=== PATIENT | male | born 1960 | race Caucasian/White ===

== ENCOUNTER 2021-06-12 17:31 | Inpatient (IN) | payer OTHER ==
[2021-06-12 18:29] VITALS: BMI 24.0
[2021-06-12] MEDS ORDERED: MAG HYDROX/AL HYDROX/SIMETH 30 ML UNIT-DOSE CUP PO PRN (19:02)
[2021-06-12] MEDS ORDERED: IBUPROFEN 400 MG TABLET (FP) PO PRN (19:02)
[2021-06-12] MEDS ORDERED: MAGNESIUM CITRATE 300 ML BOTTLE PO PRN (19:02)
[2021-06-12] MEDS ORDERED: guaiFENesin 200 MG/10 ML 10 ML UNIT-DOSE CUPS PO PRN (19:02)
[2021-06-12] MEDS ORDERED: NICOTINE 10 MG CARTRIDGE (INHALER) IH PRN (19:02)
[2021-06-12] MEDS ORDERED: P-EPHED 60MG/TRIPROLIDI 2.5MG TABLET PO PRN (19:02)
[2021-06-12] MEDS ORDERED: MAGNESIUM HYDROX 2400MG/30ML ORAL SUSPENSION 30 ML CUP PO PRN (19:02)
[2021-06-12] MEDS ORDERED: LOPERAMIDE HCL 2 MG CAPSULE PO PRN (19:02)
[2021-06-12] MEDS ORDERED: ACETAMINOPHEN 325 MG TABLET (FP) PO PRN (19:02)
[2021-06-12] MEDS ORDERED: TUBERCULIN PPD 5 TU/0.1ML VIAL ID ONE (22:05)
[2021-06-12] MEDS: MELATONIN 5 MG TABLETS PO SCH (22:06)
[2021-06-12] MEDS: THIAMINE HCL 100 MG TABLET (FP) PO SCH (22:06)
[2021-06-12] MEDS: hydrOXYzine PAMOATE 25 MG CAPSULE (FP) PO SCH (22:06)
[2021-06-13] MEDS: hydrOXYzine PAMOATE 25 MG CAPSULE (FP) PO SCH ×5 (07:00→21:52)
[2021-06-13] MEDS: NICOTINE 7 MG/24 HOURS TOPICAL PATCH TD SCH (10:01)
[2021-06-13] MEDS: PRENATAL VITAMINS W/ FOLIC ACID TABLET (FP) PO SCH (10:01)
[2021-06-13 14:54] LABS: URINE APPEARANCE CLEAR; URINE BILIRUBIN 2+ (NEGATIVE); URINE COLOR DK YELLOW; URINE GLUCOSE (UA) NEGATIVE (NEGATIVE); URINE KETONE TRACE (NEGATIVE); URINE LEUK ESTERASE NEGATIVE (NEGATIVE); URINE NITRITE NEGATIVE (NEGATIVE); URINE PROTEIN NEGATIVE (NEGATIVE); URINE UROBILINOGEN 4.0 E.U/dl mg/dL (0.2-1.0)
[2021-06-13] MEDS: MELATONIN 5 MG TABLETS PO SCH (21:52)
[2021-06-13] MEDS: THIAMINE HCL 100 MG TABLET (FP) PO SCH (21:52)
[2021-06-14] MEDS: hydrOXYzine PAMOATE 25 MG CAPSULE (FP) PO SCH ×3 (06:43→13:17)
[2021-06-14] MEDS: PRENATAL VITAMINS W/ FOLIC ACID TABLET (FP) PO SCH (09:40)
[2021-06-14] MEDS: NICOTINE 7 MG/24 HOURS TOPICAL PATCH TD SCH (09:41)
[2021-06-14 11:07] LABS: HEMATOCRIT 27.5 % (35.4-49); HEMOGLOBIN 9.3 GM/dL (11.7-16.9); MCH 32.5 pg (25.7-33.7); MCHC 33.9 g/dl (32.0-35.9); MEAN CELL VOLUME 95.9 fl (80-96); MEAN PLT VOLUME 7.6 fl (7.5-11.1); PLATELET COUNT 80 10^3/uL (134-434); RBC 2.87 M/mm3 (4.00-5.60); RDW 14.9 % (11.9-15.9); WHITE BLOOD COUNT 4.6 K/mm3 (4.0-10.0)
[2021-06-14 12:57] LABS: ALBUMIN 2.2 g/dl (3.4-5.0); BILIRUBIN,TOTAL 2.7 mg/dL (0.2-1); BLOOD UREA NITROGEN 18.2 mg/dL (7-18); CALCIUM 8.5 mg/dL (8.5-10.1); TOT PROT 8.2 g/dl (6.4-8.2)
[2021-06-14] MEDS ORDERED: hydrOXYzine PAMOATE 25 MG CAPSULE (FP) PO PRN (15:38)
[2021-06-14] MEDS: THIAMINE HCL 100 MG TABLET (FP) PO SCH (21:09)
[2021-06-14] MEDS: MELATONIN 5 MG TABLETS PO SCH (21:09)
[2021-06-15] MEDS: NICOTINE 7 MG/24 HOURS TOPICAL PATCH TD SCH (10:48)
[2021-06-15] MEDS: PRENATAL VITAMINS W/ FOLIC ACID TABLET (FP) PO SCH (10:48)
[2021-06-15 18:41] LABS: SYPHILIS W/ RPR CONF NON-REACTIVE (NONREACTIVE)
[2021-06-15 19:43] VITALS: TEMP 98.3
[2021-06-15 19:45] VITALS: BP 136/62; PULSE 84
[2021-06-15] MEDS: MELATONIN 5 MG TABLETS PO SCH (21:20)
[2021-06-15] MEDS: THIAMINE HCL 100 MG TABLET (FP) PO SCH (21:21)
[2021-06-16] MEDS ORDERED: HEPARIN NA (PORCINE) 5,000 UNITS/ML 1ML VIAL SQ SCH (02:00)
[2021-06-16] MEDS ORDERED: INSULIN SLIDING SCALE (NOVOLOG) 1 VIAL SQ SCH (07:00)
[2021-06-16] MEDS ORDERED: MUPIROCIN 2% TOPICAL OINTMENT FOR DECOLONIZATION NS SCH ×2 (10:00)
[2021-06-16] MEDS ORDERED: CHLORHEXIDINE GLUCONATE 4% CLEANSER FOR DECOLONIZATION TP SCH ×2 (22:00)
== END 2021-06-16 00:19 | disposition short-term general hospital (02) | DRG 895 ==
LOC: YASAS 17:31 → Y5N 19:54
PROVIDERS: ADMIT Allergy & Immunology; ATTEND Allergy & Immunology
PROC: HZ42ZZZ Group Counseling for Substance Abuse Treatment, Cognitive-Behavioral (ICD-10-PCS; principal; 2021-06-12)
DX: F10.20 Alcohol dependence, uncomplicated (principal); F17.210 Nicotine dependence, cigarettes, uncomplicated; J45.909 Unspecified asthma, uncomplicated; G62.9 Polyneuropathy, unspecified; K74.60 Unspecified cirrhosis of liver; D51.9 Vitamin B12 deficiency anemia, unspecified; R46.4 Slowness and poor responsiveness
CPT/HCPCS: 36415; 80053; 81003; 82962; 85027; 86780; 86803; 87811; C9803; U0003; U0005

== ENCOUNTER 2021-06-15 20:05 | Inpatient (IN) | payer OTHER ==
[2021-06-15] MEDS ORDERED: LORazepam 2 MG/ML SDV VIAL ONE ×3 (20:11→22:05)
[2021-06-15] MEDS ORDERED: LORazepam 2 MG/ML SDV VIAL IVPUSH ONE ×4 (20:15→22:02)
[2021-06-15 21:05] LABS: EOS % 2.3 % (0-4.5); HEMATOCRIT 23.3 % (35.4-49); HEMOGLOBIN 7.9 GM/dL (11.7-16.9); LYMPH % 16.3 % (8-40); MCH 31.7 pg (25.7-33.7); MEAN CELL VOLUME 93.2 fl (80-96); MEAN PLT VOLUME 7.1 fl (7.5-11.1); MONO % 8.5 % (3.8-10.2); NEUT % 71.9 % (42.8-82.8); PLATELET COUNT 62 10^3/uL (134-434); RDW 15.1 % (11.9-15.9); VENOUS BASE EXCESS -3.4 mmol/L (-2-2); VENOUS O2 SATURATION 43.5 % (70-80); VENOUS PCO2 35.6 mmHg (38-52); VENOUS PH 7.387 (7.310-7.410); WHITE BLOOD COUNT 4.1 K/mm3 (4.0-10.0)
[2021-06-15 21:12] LABS: INR 1.62 (0.83-1.09); PROTHROMBIN TIME (PATIENT) 18.2 SEC (9.7-13.0)
[2021-06-15 21:15] LABS: ACTIVATED PTT 33.4 SECONDS (25.2-36.5)
[2021-06-15] MEDS ORDERED: levETIRAcetam 500 MG/5 ML INJECTION VIAL IVPB ONE ×2 (21:15→21:20)
[2021-06-15 21:33] LABS: CHLORIDE 110 mmol/L (98-107); SODIUM 140 mmol/L (136-145)
[2021-06-15 21:35] LABS: CALCIUM 7.9 mg/dL (8.5-10.1)
[2021-06-15 21:36] LABS: ANION GAP 10 MMOL/L (8-16); CO2 19 mmol/L (21-32); GLUCOSE,RANDOM 120 mg/dL (74-106); MAGNESIUM 1.8 mg/dL (1.8-2.4)
[2021-06-15 21:39] LABS: CHOLESTEROL 145 mg/dL (50-200); SGOT/AST 79 U/L (15-37); SGPT/ALT 43 U/L (13-61)
[2021-06-15 21:40] LABS: BILIRUBIN,TOTAL 2.4 mg/dL (0.2-1); LDL CHOLESTEROL (ONLY SJRH) 109 mg/dL (5-100); TOT PROT 7.8 g/dl (6.4-8.2); TRIGLYCERIDES 55 mg/dL (0-150)
[2021-06-15 21:41] LABS: ALK PHOS 173 U/L (45-117); HDL CHOLESTEROL 22 mg/dL (40-60)
[2021-06-15] MEDS ORDERED: LACTULOSE 20 GM/30 ML UDC (FOR RECTAL USE ONLY) PR ONE (22:11)
[2021-06-15] MEDS ORDERED: diazePAM CARPU-JECT 10 MG/2 ML DISP.SYRIN IVPUSH ONE (23:19)
[2021-06-15] MEDS ORDERED: diazePAM CARPU-JECT 10 MG/2 ML DISP.SYRIN ONE (23:30)
[2021-06-16] MEDS ORDERED: PANTOPRAZOLE SODIUM 40 MG VIAL IVPUSH ONE (00:12)
[2021-06-16] MEDS ORDERED: PROPOFOL 1,000,000 MCG/100 ML VIAL ONE (00:31)
[2021-06-16] MEDS ORDERED: RIFAXIMIN 550 MG TABLET PO ONE (00:32)
[2021-06-16] MEDS ORDERED: LACTULOSE 20 GM/30 ML UDC (FOR ORAL USE ONLY) PO ONE (00:34)
[2021-06-16] MEDS ORDERED: ETOMIDATE 40 MG/20 ML VIAL IVPUSH ONE (00:36)
[2021-06-16] MEDS ORDERED: ROCURONIUM BROMIDE 50 MG/5 ML VIAL IV ONE (00:36)
[2021-06-16] MEDS: PROPOFOL 1,000,000 MCG/100 ML VIAL IVPB SCH (00:56)
[2021-06-16] MEDS ORDERED: PANTOPRAZOLE SODIUM 40 MG VIAL ONE (01:14)
[2021-06-16 01:22] LABS: ARTERIAL BLOOD GAS PO2 148.5 mmHg (80-100); ARTERIAL BLOOD GAS pH 7.323 (7.350-7.450)
[2021-06-16 01:23] LABS: ALLENS TEST POSITIVE
[2021-06-16 01:24] LABS: VENT RATE 12
[2021-06-16] MEDS: OCTREOTIDE ACETATE 200 MCG, OCTREOTIDE ACETATE 1,000 MCG in DEXTROSE 5%-WATER - 496 ML IVPB SCH (01:33)
[2021-06-16] MEDS: PANTOPRAZOLE SODIUM 80 MG in SODIUM CHLORIDE 100 ML IVPB SCH ×3 (01:33→21:00)
[2021-06-16 01:43] LABS: EPI CELLS 15 /uL (0-25.1); HYALINE CASTS 1 /uL (0-3.1); PH,URINE 5.5 (5.0-8.0); URINE APPEARANCE CLEAR; URINE BACTERIA 80 /uL (0-1359); URINE BILIRUBIN NEGATIVE (NEGATIVE); URINE COLOR DK YELLOW; URINE GLUCOSE (UA) NEGATIVE (NEGATIVE); URINE KETONE NEGATIVE (NEGATIVE); URINE LEUK ESTERASE NEGATIVE (NEGATIVE); URINE NITRITE NEGATIVE (NEGATIVE); URINE PROTEIN NEGATIVE (NEGATIVE); URINE RBC 19 /uL (0-23.9); URINE WBC 8 /uL (0-25.8)
[2021-06-16 01:46] LABS: METHADONE, UR NEGATIVE (NEGATIVE); OPIATES, URI NEGATIVE (NEGATIVE); PHENCYCLIDINE,URINE NEGATIVE (NEGATIVE); URINE BARBITURATES NEGATIVE (NEGATIVE)
[2021-06-16 01:47] LABS: COCAINE, UR NEGATIVE (NEGATIVE); URINE AMPHETAMINES NEGATIVE (NEGATIVE)
[2021-06-16 01:52] LABS: URINE BENZODIAZEPINES POSITIVE (NEGATIVE)
[2021-06-16 03:40] LABS: BASO % 0.5 % (0-2.0); EOS % 0.2 % (0-4.5); HEMATOCRIT 24.6 % (35.4-49); HEMOGLOBIN 8.3 GM/dL (11.7-16.9); LYMPH % 4.4 % (8-40); MCH 31.9 pg (25.7-33.7); MCHC 33.9 g/dl (32.0-35.9); MEAN CELL VOLUME 94.2 fl (80-96); MEAN PLT VOLUME 6.9 fl (7.5-11.1); MONO % 9.8 % (3.8-10.2); NEUT % 85.1 % (42.8-82.8); PLATELET COUNT 71 10^3/uL (134-434); RBC 2.62 M/mm3 (4.00-5.60); RDW 15.3 % (11.9-15.9); WHITE BLOOD COUNT 8.9 K/mm3 (4.0-10.0)
[2021-06-16] MEDS: THIAMINE HCL 200 MG/2 ML VIAL IVPB SCH ×3 (04:03→18:38)
[2021-06-16] MEDS ORDERED: CEFTRIAXONE 1 GM in DEXTROSE 5%-WATER - 50 ML IVPB ONE (04:30)
[2021-06-16] MEDS ORDERED: HEPARIN NA (PORCINE) 5,000 UNITS/ML 1ML VIAL SQ SCH (06:00)
[2021-06-16] MEDS ORDERED: cefTRIAXone SODIUM 1 GM VIAL ONE (06:59)
[2021-06-16] MEDS ORDERED: DEXTROSE 5%-WATER - 50 ML IVPB ONE (07:00)
[2021-06-16 07:02] LABS: BASO % 0.4 % (0-2.0); EOS % 0.3 % (0-4.5); HEMATOCRIT 22.3 % (35.4-49); HEMOGLOBIN 7.6 GM/dL (11.7-16.9); MCH 32.4 pg (25.7-33.7); MEAN CELL VOLUME 95.3 fl (80-96); MEAN PLT VOLUME 7.4 fl (7.5-11.1); MONO % 10.8 % (3.8-10.2); NEUT % 81.5 % (42.8-82.8); PLATELET COUNT 61 10^3/uL (134-434); RBC 2.34 M/mm3 (4.00-5.60); RDW 14.9 % (11.9-15.9)
[2021-06-16 07:18] LABS: ALBUMIN 1.8 g/dl (3.4-5.0); CALCIUM 7.8 mg/dL (8.5-10.1)
[2021-06-16 07:19] LABS: MAGNESIUM 1.6 mg/dL (1.8-2.4)
[2021-06-16] MEDS: INSULIN SLIDING SCALE (NOVOLOG) 1 VIAL SQ SCH ×4 (07:19→23:46)
[2021-06-16 07:21] LABS: CREATININE 1.2 mg/dL (0.55-1.3); PHOSPHOROUS 3.6 mg/dL (2.5-4.9)
[2021-06-16 07:23] LABS: TOT PROT 7.3 g/dl (6.4-8.2)
[2021-06-16] MEDS ORDERED: FENTANYL NS IVPB 500 MCG/100 ML BAG IVPB ONE (08:17)
[2021-06-16] MEDS: LACTATED RINGERS SOLUTION 1,000 ML/1,000 ML INFUS.BAG IV SCH (08:30)
[2021-06-16] MEDS: FENTANYL IVPB 500 MCG/100 ML BAG IVPB SCH (08:32)
[2021-06-16] MEDS ORDERED: MAGNESIUM 1GM/D5W - 1 GM/100 ML IVPB IVPB ONE (10:29)
[2021-06-16 10:36] LABS: HEMATOCRIT 23.6 % (35.4-49); HEMOGLOBIN 7.9 GM/dL (11.7-16.9); MCH 31.6 pg (25.7-33.7); MCHC 33.2 g/dl (32.0-35.9); MEAN PLT VOLUME 6.8 fl (7.5-11.1); RBC 2.49 M/mm3 (4.00-5.60); RDW 15.5 % (11.9-15.9); WHITE BLOOD COUNT 5.2 K/mm3 (4.0-10.0)
[2021-06-16 11:00] LABS: PLATELET COUNT 33 10^3/uL (134-434)
[2021-06-16] MEDS ORDERED: LACTATED RINGERS SOLUTION 1000 ML INFUS.BAG IV ONE ×2 (11:00→11:24)
[2021-06-16] MEDS: MUPIROCIN 2% TOPICAL OINTMENT FOR DECOLONIZATION NS SCH ×2 (11:15→23:46)
[2021-06-16] MEDS ORDERED: PT OWN MED DRAWER 7, Y5N ONE ×2 (11:19→18:36)
[2021-06-16] MEDS: VASOPRESSIN 40 UNITS/100 ML BAG IV SCH (11:40)
[2021-06-16 13:37] LABS: HEMATOCRIT 20.1 % (35.4-49); MCH 32.6 pg (25.7-33.7); MCHC 33.8 g/dl (32.0-35.9); MEAN CELL VOLUME 96.2 fl (80-96); MEAN PLT VOLUME 7.6 fl (7.5-11.1); RBC 2.09 M/mm3 (4.00-5.60); RDW 15.2 % (11.9-15.9); WHITE BLOOD COUNT 5.1 K/mm3 (4.0-10.0)
[2021-06-16 13:40] LABS: HEMOGLOBIN 6.8 GM/dL (11.7-16.9)
[2021-06-16 13:41] LABS: PLATELET COUNT 18 10^3/uL (134-434)
[2021-06-16 14:13] LABS: ANISOCYTOSIS 0; HELMET CELLS 0; HOWELL-JOLLY BODIES 0; MACROCYTOSIS 0; OVALOCYTE 0; PLATELET ESTIMATE DECREASED; ROULEAU 0; SICKELED CELLS 0; TARGET CELLS 0; TEAR DROP CELLS 0; TOXIC GRANULATION 0
[2021-06-16 14:19] LABS: BLOOD UREA NITROGEN 26.2 mg/dL (7-18); CALCIUM 7.6 mg/dL (8.5-10.1)
[2021-06-16 14:23] LABS: CREATININE 1.3 mg/dL (0.55-1.3)
[2021-06-16 14:37] LABS: LACTIC ACID 4.8 mmol/L (0.4-2.0)
[2021-06-16] MEDS ORDERED: PHYTONADIONE 10 MG/1 ML AMP IVPB ONE (16:44)
[2021-06-16 20:50] LABS: LACTIC ACID 3.1 mmol/L (0.4-2.0)
[2021-06-16 23:31] LABS: HEMOGLOBIN 9.7 GM/dL (11.7-16.9); MCH 31.7 pg (25.7-33.7); MCHC 34.6 g/dl (32.0-35.9); MEAN CELL VOLUME 91.6 fl (80-96); MEAN PLT VOLUME 8.7 fl (7.5-11.1); PLATELET COUNT 27 10^3/uL (134-434); RBC 3.06 M/mm3 (4.00-5.60); RDW 15.9 % (11.9-15.9); WHITE BLOOD COUNT 10.5 K/mm3 (4.0-10.0)
[2021-06-16] MEDS: CHLORHEXIDINE GLUCONATE 4% CLEANSER FOR DECOLONIZATION TP SCH (23:46)
[2021-06-17] MEDS: THIAMINE HCL 200 MG/2 ML VIAL IVPB SCH ×3 (02:16→17:48)
[2021-06-17] MEDS: OCTREOTIDE ACETATE 200 MCG, OCTREOTIDE ACETATE 1,000 MCG in DEXTROSE 5%-WATER - 496 ML IVPB SCH (02:21)
[2021-06-17] MEDS: PROPOFOL 1,000,000 MCG/100 ML VIAL IVPB SCH (02:21)
[2021-06-17 06:33] LABS: ARTERIAL BLD GAS O2 SATURATION 98.8 % (95-98); ARTERIAL BLOOD GAS PO2 128.9 mmHg (80-100); ARTERIAL BLOOD GAS pH 7.489 (7.350-7.450)
[2021-06-17 06:45] LABS: ALLENS TEST POSITIVE
[2021-06-17 06:46] LABS: VENT MODE A/C; VENT RATE 12
[2021-06-17 07:47] LABS: BASO % 0.8 % (0-2.0); EOS % 5.4 % (0-4.5); HEMATOCRIT 25.9 % (35.4-49); HEMOGLOBIN 9.1 GM/dL (11.7-16.9); LYMPH % 4.3 % (8-40); MCH 32.2 pg (25.7-33.7); MCHC 35.1 g/dl (32.0-35.9); MEAN CELL VOLUME 91.9 fl (80-96); MEAN PLT VOLUME 9.1 fl (7.5-11.1); MONO % 7.7 % (3.8-10.2); NEUT % 81.8 % (42.8-82.8); RBC 2.82 M/mm3 (4.00-5.60); RDW 15.3 % (11.9-15.9); WHITE BLOOD COUNT 7.1 K/mm3 (4.0-10.0)
[2021-06-17] MEDS: INSULIN SLIDING SCALE (NOVOLOG) 1 VIAL SQ SCH ×4 (08:00→22:46)
[2021-06-17 08:12] LABS: BLOOD UREA NITROGEN 24.9 mg/dL (7-18); CALCIUM 7.8 mg/dL (8.5-10.1)
[2021-06-17 08:13] LABS: MAGNESIUM 1.5 mg/dL (1.8-2.4)
[2021-06-17 08:15] LABS: CREATININE 1.2 mg/dL (0.55-1.3)
[2021-06-17 08:17] LABS: BILIRUBIN,TOTAL 3.5 mg/dL (0.2-1); TOT PROT 7.2 g/dl (6.4-8.2)
[2021-06-17 08:31] LABS: PLATELET COUNT 21 10^3/uL (134-434)
[2021-06-17] MEDS ORDERED: LACTULOSE 20 GM/30 ML UDC (FOR ORAL USE ONLY) PO PRN (08:33)
[2021-06-17] MEDS ORDERED: POTASSIUM CHLORIDE ORAL LIQUID 20 MEQ/15 ML PO ONE (08:37)
[2021-06-17] MEDS ORDERED: MAGNESIUM 1GM/D5W 100ML - 100 ML IVPB IVPB ONE (08:37)
[2021-06-17] MEDS: MUPIROCIN 2% TOPICAL OINTMENT FOR DECOLONIZATION NS SCH ×2 (09:30→21:43)
[2021-06-17] MEDS: RIFAXIMIN 550 MG TABLET PO SCH ×2 (09:31→21:42)
[2021-06-17] MEDS ORDERED: cefTRIAXone SODIUM 1 GM VIAL ONE (12:46)
[2021-06-17] MEDS ORDERED: DEXTROSE 5%-WATER - 50 ML IVPB ONE (12:46)
[2021-06-17] MEDS: CEFTRIAXONE 1 GM in DEXTROSE 5%-WATER - 50 ML IVPB SCH (13:15)
[2021-06-17] MEDS: LACTATED RINGERS SOLUTION 1,000 ML/1,000 ML INFUS.BAG IV SCH (13:18)
[2021-06-17] MEDS: FENTANYL IVPB 500 MCG/100 ML BAG IVPB SCH (15:56)
[2021-06-17] MEDS: PANTOPRAZOLE SODIUM 80 MG in SODIUM CHLORIDE 100 ML IVPB SCH ×2 (15:57→16:18)
[2021-06-17] MEDS ORDERED: VASOPRESSIN 20 UNITS/ML VIAL IV ONE (18:33)
[2021-06-17 18:55] LABS: INR 1.87 (0.83-1.09); PROTHROMBIN TIME (PATIENT) 21.1 SEC (9.7-13.0)
[2021-06-17 18:57] LABS: ACTIVATED PTT 33.2 SECONDS (25.2-36.5)
[2021-06-17] MEDS: VASOPRESSIN 40 UNITS/100 ML BAG IV SCH (19:15)
[2021-06-17] MEDS: CHLORHEXIDINE GLUCONATE 4% CLEANSER FOR DECOLONIZATION TP SCH (21:42)
[2021-06-18] MEDS: PROPOFOL 1,000,000 MCG/100 ML VIAL IVPB SCH (00:30)
[2021-06-18] MEDS: OCTREOTIDE ACETATE 200 MCG, OCTREOTIDE ACETATE 1,000 MCG in DEXTROSE 5%-WATER - 496 ML IVPB SCH (02:36)
[2021-06-18] MEDS: THIAMINE HCL 200 MG/2 ML VIAL IVPB SCH ×3 (02:37→18:31)
[2021-06-18] MEDS: PANTOPRAZOLE SODIUM 80 MG in SODIUM CHLORIDE 100 ML IVPB SCH ×3 (03:45→23:04)
[2021-06-18] MEDS: INSULIN SLIDING SCALE (NOVOLOG) 1 VIAL SQ SCH ×4 (06:19→23:04)
[2021-06-18 06:56] LABS: BASO % 0.6 % (0-2.0); EOS % 7.6 % (0-4.5); HEMATOCRIT 25.1 % (35.4-49); HEMOGLOBIN 8.8 GM/dL (11.7-16.9); LYMPH % 10.1 % (8-40); MCH 31.8 pg (25.7-33.7); MCHC 34.9 g/dl (32.0-35.9); MEAN PLT VOLUME 8.9 fl (7.5-11.1); MONO % 11.1 % (3.8-10.2); NEUT % 70.6 % (42.8-82.8); RBC 2.76 M/mm3 (4.00-5.60); RDW 15.4 % (11.9-15.9); WHITE BLOOD COUNT 6.5 K/mm3 (4.0-10.0)
[2021-06-18 07:14] LABS: PLATELET COUNT 18 10^3/uL (134-434)
[2021-06-18 07:17] LABS: ALBUMIN 1.6 g/dl (3.4-5.0); BLOOD UREA NITROGEN 21.2 mg/dL (7-18); CALCIUM 7.3 mg/dL (8.5-10.1); MAGNESIUM 1.7 mg/dL (1.8-2.4)
[2021-06-18 07:20] LABS: CREATININE 0.9 mg/dL (0.55-1.3); PHOSPHOROUS 2.3 mg/dL (2.5-4.9)
[2021-06-18 07:22] LABS: BILIRUBIN,TOTAL 2.9 mg/dL (0.2-1); TOT PROT 6.6 g/dl (6.4-8.2)
[2021-06-18] MEDS ORDERED: MAGNESIUM SULF 50% (8.12 MEQ/2 ML-1 GM VIAL) IVPB ONE (09:00)
[2021-06-18] MEDS ORDERED: NAPH,MB-DB/K PH,MBDB POWDER PACKET PO ONE (09:00)
[2021-06-18] MEDS ORDERED: PT OWN MED DRAWER 7, Y5N ONE ×3 (09:02→21:30)
[2021-06-18] MEDS ORDERED: cefTRIAXone SODIUM 1 GM VIAL ONE (09:03)
[2021-06-18] MEDS ORDERED: DEXTROSE 5%-WATER - 50 ML IVPB ONE (09:03)
[2021-06-18] MEDS: CEFTRIAXONE 1 GM in DEXTROSE 5%-WATER - 50 ML IVPB SCH (09:10)
[2021-06-18] MEDS: LACTATED RINGERS SOLUTION 1,000 ML/1,000 ML INFUS.BAG IV SCH ×2 (09:12→23:06)
[2021-06-18] MEDS: MUPIROCIN 2% TOPICAL OINTMENT FOR DECOLONIZATION NS SCH ×2 (09:12→23:04)
[2021-06-18] MEDS: RIFAXIMIN 550 MG TABLET PO SCH ×2 (09:13→23:04)
[2021-06-18] MEDS ORDERED: OCTREOTIDE ACETATE 200 MCG, OCTREOTIDE ACETATE 1,000 MCG in DEXTROSE 5%-WATER - 496 ML IVPB SCH (14:50)
[2021-06-18] MEDS: LACTULOSE 20 GM/30 ML UDC (FOR ORAL USE ONLY) GT SCH ×2 (15:00→23:04)
[2021-06-18] MEDS: VASOPRESSIN 40 UNITS/100 ML BAG IV SCH (15:05)
[2021-06-18] MEDS ORDERED: PHYTONADIONE 10 MG/1 ML AMP IVPB ONE (15:30)
[2021-06-18] MEDS: FENTANYL IVPB 500 MCG/100 ML BAG IVPB SCH (18:31)
[2021-06-18 19:26] LABS: BASO % 0.6 % (0-2.0); EOS % 6.1 % (0-4.5); HEMATOCRIT 25.4 % (35.4-49); HEMOGLOBIN 8.7 GM/dL (11.7-16.9); LYMPH % 8.7 % (8-40); MCH 31.2 pg (25.7-33.7); MCHC 34.2 g/dl (32.0-35.9); MEAN CELL VOLUME 91.1 fl (80-96); MEAN PLT VOLUME 8.1 fl (7.5-11.1); MONO % 10.5 % (3.8-10.2); NEUT % 74.1 % (42.8-82.8); RBC 2.79 M/mm3 (4.00-5.60); RDW 15.4 % (11.9-15.9); WHITE BLOOD COUNT 5.5 K/mm3 (4.0-10.0)
[2021-06-18 19:49] LABS: PLATELET COUNT 26 10^3/uL (134-434)
[2021-06-18] MEDS: CHLORHEXIDINE GLUCONATE 4% CLEANSER FOR DECOLONIZATION TP SCH (23:04)
[2021-06-19] MEDS: PROPOFOL 1,000,000 MCG/100 ML VIAL IVPB SCH ×2 (00:23→19:00)
[2021-06-19] MEDS: THIAMINE HCL 200 MG/2 ML VIAL IVPB SCH ×3 (01:32→18:52)
[2021-06-19] MEDS: LACTATED RINGERS SOLUTION 1,000 ML/1,000 ML INFUS.BAG IV SCH ×2 (05:43→10:57)
[2021-06-19] MEDS: LACTULOSE 20 GM/30 ML UDC (FOR ORAL USE ONLY) GT SCH ×3 (05:43→21:27)
[2021-06-19] MEDS: INSULIN SLIDING SCALE (NOVOLOG) 1 VIAL SQ SCH ×4 (06:03→21:28)
[2021-06-19 07:07] LABS: BASO % 0.8 % (0-2.0); EOS % 7.8 % (0-4.5); HEMATOCRIT 23.8 % (35.4-49); HEMOGLOBIN 8.4 GM/dL (11.7-16.9); LYMPH % 13.2 % (8-40); MCH 32.4 pg (25.7-33.7); MCHC 35.2 g/dl (32.0-35.9); MEAN CELL VOLUME 92.1 fl (80-96); MEAN PLT VOLUME 9.4 fl (7.5-11.1); MONO % 12.2 % (3.8-10.2); RBC 2.59 M/mm3 (4.00-5.60); RDW 14.9 % (11.9-15.9); WHITE BLOOD COUNT 5.4 K/mm3 (4.0-10.0)
[2021-06-19 07:16] LABS: PLATELET COUNT 30 10^3/uL (134-434)
[2021-06-19 07:25] LABS: BLOOD UREA NITROGEN 16.9 mg/dL (7-18); CALCIUM 7.4 mg/dL (8.5-10.1)
[2021-06-19 07:26] LABS: MAGNESIUM 1.8 mg/dL (1.8-2.4)
[2021-06-19 07:28] LABS: CREATININE 0.7 mg/dL (0.55-1.3); PHOSPHOROUS 1.9 mg/dL (2.5-4.9)
[2021-06-19 07:30] LABS: BILIRUBIN,TOTAL 2.4 mg/dL (0.2-1); TOT PROT 6.5 g/dl (6.4-8.2)
[2021-06-19] MEDS ORDERED: NAPH,MB-DB/K PH,MBDB POWDER PACKET PO ONE (09:00)
[2021-06-19] MEDS ORDERED: cefTRIAXone SODIUM 1 GM VIAL ONE (10:44)
[2021-06-19] MEDS ORDERED: DEXTROSE 5%-WATER - 50 ML IVPB ONE (10:45)
[2021-06-19] MEDS: PANTOPRAZOLE SODIUM 40 MG VIAL IVPUSH SCH ×2 (10:56→21:27)
[2021-06-19] MEDS: MUPIROCIN 2% TOPICAL OINTMENT FOR DECOLONIZATION NS SCH ×2 (10:56→21:28)
[2021-06-19] MEDS: CEFTRIAXONE 1 GM in DEXTROSE 5%-WATER - 50 ML IVPB SCH (10:56)
[2021-06-19] MEDS: FENTANYL IVPB 500 MCG/100 ML BAG IVPB SCH (10:57)
[2021-06-19] MEDS: RIFAXIMIN 550 MG TABLET PO SCH ×2 (10:58→21:28)
[2021-06-19] MEDS ORDERED: PT OWN MED DRAWER 7, Y5N ONE (13:07)
[2021-06-19 14:07] LABS: THYROID STIM IMMUNOGLOBULIN <0.10 IU/L (0.00-0.55)
[2021-06-19 16:17] LABS: BASO % 0.9 % (0-2.0); EOS % 4.5 % (0-4.5); HEMATOCRIT 24.5 % (35.4-49); HEMOGLOBIN 8.4 GM/dL (11.7-16.9); LYMPH % 7.5 % (8-40); MCH 31.2 pg (25.7-33.7); MCHC 34.4 g/dl (32.0-35.9); MEAN CELL VOLUME 90.7 fl (80-96); MEAN PLT VOLUME 8.4 fl (7.5-11.1); MONO % 12.6 % (3.8-10.2); NEUT % 74.5 % (42.8-82.8); WHITE BLOOD COUNT 5.8 K/mm3 (4.0-10.0)
[2021-06-19 16:32] LABS: PLATELET COUNT 28 10^3/uL (134-434)
[2021-06-19] MEDS: CHLORHEXIDINE GLUCONATE 4% CLEANSER FOR DECOLONIZATION TP SCH (21:28)
[2021-06-20] MEDS: PROPOFOL 1,000,000 MCG/100 ML VIAL IVPB SCH (01:51)
[2021-06-20] MEDS: THIAMINE HCL 200 MG/2 ML VIAL IVPB SCH ×3 (01:51→18:07)
[2021-06-20] MEDS: INSULIN SLIDING SCALE (NOVOLOG) 1 VIAL SQ SCH ×4 (06:39→21:14)
[2021-06-20] MEDS: LACTULOSE 20 GM/30 ML UDC (FOR ORAL USE ONLY) GT SCH ×3 (06:41→21:14)
[2021-06-20 07:38] LABS: BASO % 0.9 % (0-2.0); HEMATOCRIT 27.7 % (35.4-49); HEMOGLOBIN 9.5 GM/dL (11.7-16.9); INR 2.08 (0.83-1.09); LYMPH % 11.6 % (8-40); MCH 31.3 pg (25.7-33.7); MCHC 34.5 g/dl (32.0-35.9); MEAN CELL VOLUME 90.9 fl (80-96); MEAN PLT VOLUME 8.4 fl (7.5-11.1); MONO % 13.4 % (3.8-10.2); NEUT % 68.1 % (42.8-82.8); PROTHROMBIN TIME (PATIENT) 23.5 SEC (9.7-13.0); RBC 3.04 M/mm3 (4.00-5.60); WHITE BLOOD COUNT 6.3 K/mm3 (4.0-10.0)
[2021-06-20 08:04] LABS: PLATELET COUNT 32 10^3/uL (134-434)
[2021-06-20 08:06] LABS: CALCIUM 7.7 mg/dL (8.5-10.1)
[2021-06-20 08:07] LABS: ALBUMIN 1.7 g/dl (3.4-5.0); BLOOD UREA NITROGEN 11.5 mg/dL (7-18); MAGNESIUM 1.9 mg/dL (1.8-2.4)
[2021-06-20 08:08] LABS: CREATININE 0.8 mg/dL (0.55-1.3)
[2021-06-20 08:10] LABS: PHOSPHOROUS 1.9 mg/dL (2.5-4.9)
[2021-06-20 08:12] LABS: BILIRUBIN,TOTAL 2.1 mg/dL (0.2-1); TOT PROT 6.7 g/dl (6.4-8.2)
[2021-06-20] MEDS: PANTOPRAZOLE SODIUM 40 MG VIAL IVPUSH SCH ×2 (10:06→21:14)
[2021-06-20] MEDS: RIFAXIMIN 550 MG TABLET PO SCH ×2 (10:06→21:14)
[2021-06-20] MEDS: MUPIROCIN 2% TOPICAL OINTMENT FOR DECOLONIZATION NS SCH ×2 (10:06→21:13)
[2021-06-20] MEDS ORDERED: PT OWN MED DRAWER 7, Y5N ONE ×3 (11:05→12:10)
[2021-06-20] MEDS ORDERED: PHYTONADIONE 10 MG/1 ML AMP SQ ONE (11:51)
[2021-06-20] MEDS ORDERED: PHYTONADIONE 10 MG/1 ML AMP IVPB ONE (13:12)
[2021-06-20] MEDS: CHLORHEXIDINE GLUCONATE 4% CLEANSER FOR DECOLONIZATION TP SCH (21:13)
[2021-06-21] MEDS: PROPOFOL 1,000,000 MCG/100 ML VIAL IVPB SCH ×3 (01:14→21:10)
[2021-06-21] MEDS: THIAMINE HCL 200 MG/2 ML VIAL IVPB SCH ×3 (01:14→17:35)
[2021-06-21] MEDS: INSULIN SLIDING SCALE (NOVOLOG) 1 VIAL SQ SCH ×4 (06:11→21:10)
[2021-06-21] MEDS: LACTULOSE 20 GM/30 ML UDC (FOR ORAL USE ONLY) GT SCH ×3 (06:11→21:10)
[2021-06-21 07:38] LABS: BASO % 0.9 % (0-2.0); HEMATOCRIT 27.4 % (35.4-49); HEMOGLOBIN 9.3 GM/dL (11.7-16.9); LYMPH % 17.3 % (8-40); MCHC 33.9 g/dl (32.0-35.9); MEAN CELL VOLUME 91.5 fl (80-96); MEAN PLT VOLUME 8.1 fl (7.5-11.1); MONO % 12.6 % (3.8-10.2); NEUT % 63.2 % (42.8-82.8); PLATELET COUNT 37 10^3/uL (134-434); RDW 15.1 % (11.9-15.9); WHITE BLOOD COUNT 6.7 K/mm3 (4.0-10.0)
[2021-06-21 07:44] LABS: INR 2.17 (0.83-1.09); PROTHROMBIN TIME (PATIENT) 25.6 SEC (9.7-13.0)
[2021-06-21] MEDS ORDERED: PROPOFOL 1,000,000 MCG/100 ML VIAL IVPB SCH (07:45)
[2021-06-21 07:50] LABS: ALBUMIN 1.6 g/dl (3.4-5.0)
[2021-06-21 07:52] LABS: CALCIUM 7.8 mg/dL (8.5-10.1)
[2021-06-21 07:53] LABS: ALBUMIN 1.8 g/dl (3.4-5.0); BILIRUBIN,DIRECT 1.8 mg/dL (0.0-0.2); BLOOD UREA NITROGEN 12.2 mg/dL (7-18); MAGNESIUM 1.8 mg/dL (1.8-2.4)
[2021-06-21 07:55] LABS: BILIRUBIN,TOTAL 2.4 mg/dL (0.2-1); TOT PROT 6.5 g/dl (6.4-8.2)
[2021-06-21 07:56] LABS: CREATININE 0.7 mg/dL (0.55-1.3); PHOSPHOROUS 2.1 mg/dL (2.5-4.9)
[2021-06-21 07:58] LABS: BILIRUBIN,TOTAL 2.4 mg/dL (0.2-1); TOT PROT 6.6 g/dl (6.4-8.2)
[2021-06-21] MEDS ORDERED: LORazepam 2 MG/ML SDV VIAL IVPUSH ONE (08:00)
[2021-06-21] MEDS ORDERED: levETIRAcetam 500 MG/5 ML INJECTION VIAL IVPB ONE (08:00)
[2021-06-21] MEDS ORDERED: PT OWN MED DRAWER 7, Y5N ONE ×2 (09:03→17:22)
[2021-06-21] MEDS: RIFAXIMIN 550 MG TABLET PO SCH ×2 (09:47→21:10)
[2021-06-21] MEDS: PANTOPRAZOLE SODIUM 40 MG VIAL IVPUSH SCH ×2 (09:47→21:10)
[2021-06-21 15:03] VITALS: BMI 23.6
[2021-06-21] MEDS ORDERED: PHYTONADIONE 10 MG/1 ML AMP IVPB ONE (16:14)
[2021-06-21 18:28] LABS: BASO % 1.2 % (0-2.0); EOS % 6.1 % (0-4.5); HEMATOCRIT 30.9 % (35.4-49); HEMOGLOBIN 10.7 GM/dL (11.7-16.9); LYMPH % 14.6 % (8-40); MCH 31.6 pg (25.7-33.7); MCHC 34.5 g/dl (32.0-35.9); MEAN CELL VOLUME 91.4 fl (80-96); MEAN PLT VOLUME 8.2 fl (7.5-11.1); MONO % 13.8 % (3.8-10.2); NEUT % 64.3 % (42.8-82.8); PLATELET COUNT 69 10^3/uL (134-434); RBC 3.38 M/mm3 (4.00-5.60); RDW 15.3 % (11.9-15.9); WHITE BLOOD COUNT 7.5 K/mm3 (4.0-10.0)
[2021-06-21] MEDS: CHLORHEXIDINE GLUCONATE 4% CLEANSER FOR DECOLONIZATION TP SCH (21:10)
[2021-06-22] MEDS: THIAMINE HCL 200 MG/2 ML VIAL IVPB SCH ×3 (01:06→18:25)
[2021-06-22] MEDS: INSULIN SLIDING SCALE (NOVOLOG) 1 VIAL SQ SCH ×4 (06:12→22:55)
[2021-06-22] MEDS: LACTULOSE 20 GM/30 ML UDC (FOR ORAL USE ONLY) GT SCH ×3 (06:12→22:40)
[2021-06-22] MEDS: PROPOFOL 1,000,000 MCG/100 ML VIAL IVPB SCH (06:12)
[2021-06-22 07:45] LABS: EOS % 5.5 % (0-4.5); HEMATOCRIT 28.3 % (35.4-49); HEMOGLOBIN 9.9 GM/dL (11.7-16.9); LYMPH % 14.9 % (8-40); MEAN CELL VOLUME 91.5 fl (80-96); MEAN PLT VOLUME 8.6 fl (7.5-11.1); MONO % 12.6 % (3.8-10.2); PLATELET COUNT 68 10^3/uL (134-434); RBC 3.09 M/mm3 (4.00-5.60); WHITE BLOOD COUNT 7.1 K/mm3 (4.0-10.0)
[2021-06-22 08:05] LABS: ALBUMIN 1.8 g/dl (3.4-5.0); BLOOD UREA NITROGEN 15.3 mg/dL (7-18); CALCIUM 7.5 mg/dL (8.5-10.1)
[2021-06-22 08:06] LABS: MAGNESIUM 1.6 mg/dL (1.8-2.4)
[2021-06-22 08:08] LABS: CREATININE 0.8 mg/dL (0.55-1.3); PHOSPHOROUS 2.8 mg/dL (2.5-4.9)
[2021-06-22] MEDS ORDERED: MAGNESIUM 1GM/D5W - 1 GM/100 ML IVPB IVPB ONE (08:08)
[2021-06-22 08:10] LABS: BILIRUBIN,TOTAL 2.3 mg/dL (0.2-1); TOT PROT 6.9 g/dl (6.4-8.2)
[2021-06-22] MEDS ORDERED: PT OWN MED DRAWER 7, Y5N ONE (08:26)
[2021-06-22 08:51] LABS: INR 2.04 (0.83-1.09)
[2021-06-22 09:26] LABS: BILIRUBIN,DIRECT 1.6 mg/dL (0.0-0.2)
[2021-06-22] MEDS: PANTOPRAZOLE SODIUM 40 MG VIAL IVPUSH SCH ×2 (09:50→21:58)
[2021-06-22] MEDS: RIFAXIMIN 550 MG TABLET PO SCH ×2 (09:50→22:40)
[2021-06-22] MEDS: CHLORHEXIDINE GLUCONATE 4% CLEANSER FOR DECOLONIZATION TP SCH (21:58)
[2021-06-23] MEDS: PROPOFOL 1,000,000 MCG/100 ML VIAL IVPB SCH (01:04)
[2021-06-23] MEDS: THIAMINE HCL 200 MG/2 ML VIAL IVPB SCH ×3 (01:30→17:47)
[2021-06-23] MEDS: LACTULOSE 20 GM/30 ML UDC (FOR ORAL USE ONLY) GT SCH ×3 (06:54→22:15)
[2021-06-23] MEDS: INSULIN SLIDING SCALE (NOVOLOG) 1 VIAL SQ SCH ×4 (06:55→22:15)
[2021-06-23] MEDS: RIFAXIMIN 550 MG TABLET PO SCH ×2 (11:32→22:15)
[2021-06-23] MEDS: PANTOPRAZOLE SODIUM 40 MG VIAL IVPUSH SCH ×2 (11:32→22:15)
[2021-06-23 12:45] LABS: BASO % 1.2 % (0-2.0); EOS % 3.2 % (0-4.5); HEMATOCRIT 28.2 % (35.4-49); HEMOGLOBIN 9.8 GM/dL (11.7-16.9); LYMPH % 12.2 % (8-40); MCHC 34.6 g/dl (32.0-35.9); MEAN CELL VOLUME 92.5 fl (80-96); MEAN PLT VOLUME 7.7 fl (7.5-11.1); MONO % 10.2 % (3.8-10.2); NEUT % 73.2 % (42.8-82.8); PLATELET COUNT 60 10^3/uL (134-434); RBC 3.05 M/mm3 (4.00-5.60); RDW 15.2 % (11.9-15.9)
[2021-06-23 13:11] LABS: CALCIUM 7.4 mg/dL (8.5-10.1)
[2021-06-23 13:12] LABS: ALBUMIN 1.7 g/dl (3.4-5.0); BLOOD UREA NITROGEN 14.4 mg/dL (7-18); MAGNESIUM 1.8 mg/dL (1.8-2.4)
[2021-06-23 13:15] LABS: CREATININE 0.7 mg/dL (0.55-1.3); PHOSPHOROUS 2.4 mg/dL (2.5-4.9)
[2021-06-23 13:16] LABS: BILIRUBIN,TOTAL 3.4 mg/dL (0.2-1)
[2021-06-23 13:17] LABS: TOT PROT 6.6 g/dl (6.4-8.2)
[2021-06-23] MEDS: CHLORHEXIDINE GLUCONATE 4% CLEANSER FOR DECOLONIZATION TP SCH (22:15)
[2021-06-24] MEDS: PROPOFOL 1,000,000 MCG/100 ML VIAL IVPB SCH (01:31)
[2021-06-24] MEDS: THIAMINE HCL 200 MG/2 ML VIAL IVPB SCH ×3 (01:35→17:03)
[2021-06-24] MEDS: LACTULOSE 20 GM/30 ML UDC (FOR ORAL USE ONLY) GT SCH ×3 (05:44→21:42)
[2021-06-24] MEDS: INSULIN SLIDING SCALE (NOVOLOG) 1 VIAL SQ SCH ×4 (06:27→21:43)
[2021-06-24 07:11] LABS: BASO % 1.3 % (0-2.0); EOS % 2.1 % (0-4.5); HEMATOCRIT 28.1 % (35.4-49); HEMOGLOBIN 9.6 GM/dL (11.7-16.9); LYMPH % 11.5 % (8-40); MCH 31.8 pg (25.7-33.7); MCHC 34.2 g/dl (32.0-35.9); MEAN CELL VOLUME 93.2 fl (80-96); MONO % 9.6 % (3.8-10.2); NEUT % 75.5 % (42.8-82.8); PLATELET COUNT 64 10^3/uL (134-434); RBC 3.02 M/mm3 (4.00-5.60); RDW 15.3 % (11.9-15.9); WHITE BLOOD COUNT 8.1 K/mm3 (4.0-10.0)
[2021-06-24 07:24] LABS: CALCIUM 7.8 mg/dL (8.5-10.1)
[2021-06-24 07:25] LABS: ALBUMIN 1.9 g/dl (3.4-5.0); BLOOD UREA NITROGEN 15.2 mg/dL (7-18); MAGNESIUM 1.9 mg/dL (1.8-2.4)
[2021-06-24 07:28] LABS: CREATININE 0.7 mg/dL (0.55-1.3); PHOSPHOROUS 2.1 mg/dL (2.5-4.9)
[2021-06-24 07:29] LABS: BILIRUBIN,TOTAL 3.6 mg/dL (0.2-1); TOT PROT 7.2 g/dl (6.4-8.2)
[2021-06-24] MEDS: PANTOPRAZOLE SODIUM 40 MG VIAL IVPUSH SCH ×2 (10:05→21:42)
[2021-06-24] MEDS: RIFAXIMIN 550 MG TABLET PO SCH ×2 (10:05→21:42)
[2021-06-24] MEDS ORDERED: ACETAMINOPHEN 325 MG TABLET (FP) PO PRN (10:22)
[2021-06-24] MEDS ORDERED: NAPH,MB-DB/K PH,MBDB POWDER PACKET PO SCH ×2 (14:00→22:00)
[2021-06-24] MEDS: AMINO ACIDS/PROTEIN HYDROLYS 30 ML LIQUID.PKT PO SCH (17:03)
[2021-06-24] MEDS: SODIUM CHLORIDE 1,000 ML IV SCH ×2 (17:14→21:43)
[2021-06-24 19:46] LABS: EPI CELLS 5 /uL (0-25.1); HYALINE CASTS 4 /uL (0-3.1); PH,URINE 5.5 (5.0-8.0); URINE APPEARANCE CLEAR; URINE BILIRUBIN 2+ (NEGATIVE); URINE COLOR ORANGE; URINE GLUCOSE (UA) NEGATIVE (NEGATIVE); URINE KETONE NEGATIVE (NEGATIVE); URINE LEUK ESTERASE 1+ (NEGATIVE); URINE NITRITE POSITIVE (NEGATIVE); URINE PROTEIN 1+ (NEGATIVE); URINE UROBILINOGEN 0.2 mg/dL (0.2-1.0); URINE WBC 27 /uL (0-25.8)
[2021-06-24 19:59] LABS: URINE BACTERIA 11.7 /uL (0-1359); URINE RBC 164.6 /uL (0-23.9)
[2021-06-24] MEDS: ASCORBIC ACID 500 MG TABLET (FP) PO SCH (21:42)
[2021-06-24] MEDS: ACETAMINOPHEN 325 MG TABLET (FP) PO PRN (21:42)
[2021-06-24] MEDS ORDERED: CHLORHEXIDINE GLUCONATE 4% CLEANSER FOR DECOLONIZATION TP SCH (22:00)
[2021-06-25] MEDS: THIAMINE HCL 200 MG/2 ML VIAL IVPB SCH ×2 (01:23→09:27)
[2021-06-25] MEDS: LACTULOSE 20 GM/30 ML UDC (FOR ORAL USE ONLY) GT SCH (06:33)
[2021-06-25] MEDS: INSULIN SLIDING SCALE (NOVOLOG) 1 VIAL SQ SCH ×4 (06:34→22:34)
[2021-06-25] MEDS ORDERED: PT OWN MED DRAWER 7, Y5N ONE (09:22)
[2021-06-25] MEDS: PANTOPRAZOLE SODIUM 40 MG VIAL IVPUSH SCH (09:25)
[2021-06-25] MEDS: AMINO ACIDS/PROTEIN HYDROLYS 30 ML LIQUID.PKT PO SCH ×4 (09:26→17:47)
[2021-06-25] MEDS: MULTIVIT-MINERALS ORAL LIQUID PO SCH (09:26)
[2021-06-25] MEDS: RIFAXIMIN 550 MG TABLET PO SCH ×2 (09:27→22:34)
[2021-06-25] MEDS: ASCORBIC ACID 500 MG TABLET (FP) PO SCH ×3 (09:27→22:34)
[2021-06-25 09:59] LABS: HEMATOCRIT 28.8 % (35.4-49); HEMOGLOBIN 9.8 GM/dL (11.7-16.9); MCH 32.1 pg (25.7-33.7); MCHC 34.2 g/dl (32.0-35.9); MEAN CELL VOLUME 93.9 fl (80-96); MEAN PLT VOLUME 7.9 fl (7.5-11.1); PLATELET COUNT 62 10^3/uL (134-434); RBC 3.06 M/mm3 (4.00-5.60); RDW 15.5 % (11.9-15.9); WHITE BLOOD COUNT 8.1 K/mm3 (4.0-10.0)
[2021-06-25 10:23] LABS: CALCIUM 7.5 mg/dL (8.5-10.1)
[2021-06-25 10:24] LABS: ALBUMIN 1.6 g/dl (3.4-5.0); BLOOD UREA NITROGEN 16.6 mg/dL (7-18); MAGNESIUM 1.8 mg/dL (1.8-2.4)
[2021-06-25 10:27] LABS: CREATININE 0.8 mg/dL (0.55-1.3); PHOSPHOROUS 2.2 mg/dL (2.5-4.9)
[2021-06-25 10:28] LABS: BILIRUBIN,TOTAL 3.2 mg/dL (0.2-1); TOT PROT 6.9 g/dl (6.4-8.2)
[2021-06-25 15:37] LABS: EPI CELLS 7 /uL (0-25.1); HYALINE CASTS 3 /uL (0-3.1); PH,URINE 5.5 (5.0-8.0); URINE APPEARANCE CLEAR; URINE BILIRUBIN 2+ (NEGATIVE); URINE COLOR ORANGE; URINE GLUCOSE (UA) NEGATIVE (NEGATIVE); URINE KETONE NEGATIVE (NEGATIVE); URINE LEUK ESTERASE 1+ (NEGATIVE); URINE NITRITE POSITIVE (NEGATIVE); URINE PROTEIN 1+ (NEGATIVE); URINE RBC 47 /uL (0-23.9); URINE UROBILINOGEN 0.2 mg/dL (0.2-1.0); URINE WBC 38 /uL (0-25.8)
[2021-06-25 19:39] LABS: INR 2.63 (0.83-1.09); PROTHROMBIN TIME (PATIENT) 29.7 SEC (9.7-13.0)
[2021-06-25] MEDS: MIRTAZAPINE 15 MG TABLET (FP) PO SCH (22:33)
[2021-06-26] MEDS: INSULIN SLIDING SCALE (NOVOLOG) 1 VIAL SQ SCH ×4 (06:10→21:19)
[2021-06-26 09:51] LABS: HEMATOCRIT 28.7 % (35.4-49); HEMOGLOBIN 9.9 GM/dL (11.7-16.9); MCH 32.4 pg (25.7-33.7); MCHC 34.6 g/dl (32.0-35.9); MEAN CELL VOLUME 93.6 fl (80-96); MEAN PLT VOLUME 7.6 fl (7.5-11.1); PLATELET COUNT 72 10^3/uL (134-434); RBC 3.06 M/mm3 (4.00-5.60); RDW 15.6 % (11.9-15.9); WHITE BLOOD COUNT 9.2 K/mm3 (4.0-10.0)
[2021-06-26 09:52] LABS: INR 2.33 (0.83-1.09); PROTHROMBIN TIME (PATIENT) 27.5 SEC (9.7-13.0)
[2021-06-26] MEDS ORDERED: PANTOPRAZOLE SODIUM 40 MG VIAL IVPUSH SCH (10:00)
[2021-06-26] MEDS ORDERED: PT OWN MED DRAWER 7, Y5N ONE (10:05)
[2021-06-26] MEDS: MULTIVIT-MINERALS ORAL LIQUID PO SCH ×2 (10:16→10:36)
[2021-06-26] MEDS: PANTOPRAZOLE 40 MG TABLET PO SCH (10:17)
[2021-06-26] MEDS: THIAMINE HCL 100 MG TABLET (FP) PO SCH (10:17)
[2021-06-26] MEDS: ASCORBIC ACID 500 MG TABLET (FP) PO SCH ×2 (10:17→21:10)
[2021-06-26] MEDS: LACTULOSE 20 GM/30 ML UDC (FOR ORAL USE ONLY) GT SCH (10:17)
[2021-06-26] MEDS: AMINO ACIDS/PROTEIN HYDROLYS 30 ML LIQUID.PKT PO SCH ×3 (10:17→18:06)
[2021-06-26] MEDS: RIFAXIMIN 550 MG TABLET PO SCH ×2 (10:17→21:11)
[2021-06-26 10:51] LABS: ALBUMIN 1.6 g/dl (3.4-5.0); BLOOD UREA NITROGEN 19.8 mg/dL (7-18); CALCIUM 7.8 mg/dL (8.5-10.1); MAGNESIUM 1.9 mg/dL (1.8-2.4)
[2021-06-26 10:54] LABS: CREATININE 0.8 mg/dL (0.55-1.3); PHOSPHOROUS 2.7 mg/dL (2.5-4.9)
[2021-06-26 10:55] LABS: BILIRUBIN,TOTAL 3.4 mg/dL (0.2-1)
[2021-06-26] MEDS ORDERED: PHYTONADIONE 5 MG TABLET PO ONE (15:39)
[2021-06-26] MEDS: SPIRONOLACTONE 25 MG TABLET PO SCH (18:06)
[2021-06-26] MEDS: MIRTAZAPINE 15 MG TABLET (FP) PO SCH (21:10)
[2021-06-27] MEDS: ACETAMINOPHEN 325 MG TABLET (FP) PO PRN (00:09)
[2021-06-27] MEDS: INSULIN SLIDING SCALE (NOVOLOG) 1 VIAL SQ SCH ×4 (06:05→22:24)
[2021-06-27] MEDS ORDERED: VANCOMYCIN 1 GM in D5W (PRE-DOCKED) 1,000 MG/250 ML IVPB ONE (08:22)
[2021-06-27] MEDS ORDERED: PIPERACILLIN/TAZOB 3.375 GM 3.375 GM in DEXTROSE 5%-WATER - 50 ML IVPB ONE (08:24)
[2021-06-27 09:34] LABS: BASO % 0.2 % (0-2.0); EOS % 2.4 % (0-4.5); HEMATOCRIT 26.5 % (35.4-49); HEMOGLOBIN 9.1 GM/dL (11.7-16.9); LYMPH % 15.6 % (8-40); MCH 31.9 pg (25.7-33.7); MCHC 34.3 g/dl (32.0-35.9); MEAN CELL VOLUME 92.9 fl (80-96); MEAN PLT VOLUME 7.8 fl (7.5-11.1); MONO % 9.9 % (3.8-10.2); NEUT % 71.9 % (42.8-82.8); PLATELET COUNT 58 10^3/uL (134-434); RBC 2.86 M/mm3 (4.00-5.60); RDW 15.8 % (11.9-15.9); WHITE BLOOD COUNT 7.9 K/mm3 (4.0-10.0)
[2021-06-27 09:38] LABS: INR 2.33 (0.83-1.09); PROTHROMBIN TIME (PATIENT) 26.3 SEC (9.7-13.0)
[2021-06-27 09:48] LABS: ALBUMIN 1.5 g/dl (3.4-5.0); CALCIUM 7.6 mg/dL (8.5-10.1)
[2021-06-27 09:49] LABS: BLOOD UREA NITROGEN 22.2 mg/dL (7-18); MAGNESIUM 1.8 mg/dL (1.8-2.4)
[2021-06-27 09:52] LABS: CREATININE 0.7 mg/dL (0.55-1.3); PHOSPHOROUS 2.7 mg/dL (2.5-4.9)
[2021-06-27 09:53] LABS: BILIRUBIN,TOTAL 3.2 mg/dL (0.2-1); TOT PROT 6.7 g/dl (6.4-8.2)
[2021-06-27] MEDS: AMINO ACIDS/PROTEIN HYDROLYS 30 ML LIQUID.PKT PO SCH ×2 (10:18→16:54)
[2021-06-27] MEDS: MULTIVIT-MINERALS ORAL LIQUID PO SCH (10:18)
[2021-06-27] MEDS: PANTOPRAZOLE 40 MG TABLET PO SCH (10:19)
[2021-06-27] MEDS: SPIRONOLACTONE 25 MG TABLET PO SCH (10:20)
[2021-06-27] MEDS: ASCORBIC ACID 500 MG TABLET (FP) PO SCH ×2 (10:20→22:23)
[2021-06-27] MEDS: RIFAXIMIN 550 MG TABLET PO SCH ×3 (10:20→22:30)
[2021-06-27] MEDS: THIAMINE HCL 100 MG TABLET (FP) PO SCH (10:20)
[2021-06-27] MEDS: LACTULOSE 20 GM/30 ML UDC (FOR ORAL USE ONLY) GT SCH (10:20)
[2021-06-27 14:15] LABS: BF WBC & OTHER NUCLEATED CELLS 107 /mm3
[2021-06-27 14:42] LABS: BODY FLUID MESOTHELIAL 5 %; BODY FLUID MONOCYTE 72 %
[2021-06-27] MEDS ORDERED: cefTRIAXone SODIUM 1 GM VIAL ONE (16:43)
[2021-06-27] MEDS ORDERED: DEXTROSE 5%-WATER - 50 ML IVPB ONE (16:43)
[2021-06-27] MEDS: CEFTRIAXONE 1 GM in DEXTROSE 5%-WATER - 50 ML IVPB SCH (16:46)
[2021-06-27 21:00] LABS: EPI CELLS 2 /uL (0-25.1); HYALINE CASTS 3 /uL (0-3.1); PH,URINE 5.5 (5.0-8.0); URINE APPEARANCE CLEAR; URINE BILIRUBIN 1+ (NEGATIVE); URINE COLOR ORANGE; URINE GLUCOSE (UA) NEGATIVE (NEGATIVE); URINE KETONE NEGATIVE (NEGATIVE); URINE LEUK ESTERASE 1+ (NEGATIVE); URINE NITRITE POSITIVE (NEGATIVE); URINE PROTEIN 1+ (NEGATIVE); URINE UROBILINOGEN 0.2 mg/dL (0.2-1.0); URINE WBC 188 /uL (0-25.8)
[2021-06-27] MEDS: MIRTAZAPINE 15 MG TABLET (FP) PO SCH (22:23)
[2021-06-27 22:32] LABS: URINE BACTERIA 342.9 /uL (0-1359); URINE RBC 74.9 /uL (0-23.9)
[2021-06-28] MEDS: INSULIN SLIDING SCALE (NOVOLOG) 1 VIAL SQ SCH ×4 (06:11→21:51)
[2021-06-28 08:56] LABS: BASO % 1.9 % (0-2.0); EOS % 2.6 % (0-4.5); HEMATOCRIT 26.7 % (35.4-49); HEMOGLOBIN 9.2 GM/dL (11.7-16.9); LYMPH % 11.2 % (8-40); MCH 32.3 pg (25.7-33.7); MCHC 34.3 g/dl (32.0-35.9); MEAN PLT VOLUME 7.6 fl (7.5-11.1); MONO % 8.9 % (3.8-10.2); NEUT % 75.4 % (42.8-82.8); PLATELET COUNT 55 10^3/uL (134-434); RBC 2.84 M/mm3 (4.00-5.60); RDW 16.1 % (11.9-15.9)
[2021-06-28 09:03] LABS: INR 2.21 (0.83-1.09); PROTHROMBIN TIME (PATIENT) 26.1 SEC (9.7-13.0)
[2021-06-28 09:18] LABS: CALCIUM 7.6 mg/dL (8.5-10.1)
[2021-06-28 09:19] LABS: ALBUMIN 1.6 g/dl (3.4-5.0); BLOOD UREA NITROGEN 23.7 mg/dL (7-18); MAGNESIUM 1.9 mg/dL (1.8-2.4)
[2021-06-28 09:22] LABS: CREATININE 0.8 mg/dL (0.55-1.3)
[2021-06-28 09:24] LABS: BILIRUBIN,TOTAL 3.6 mg/dL (0.2-1)
[2021-06-28] MEDS ORDERED: cefTRIAXone SODIUM 1 GM VIAL ONE (10:46)
[2021-06-28] MEDS ORDERED: PT OWN MED DRAWER 7, Y5N ONE (10:46)
[2021-06-28] MEDS ORDERED: DEXTROSE 5%-WATER - 50 ML IVPB ONE (10:46)
[2021-06-28] MEDS: AMINO ACIDS/PROTEIN HYDROLYS 30 ML LIQUID.PKT PO SCH ×3 (10:55→17:07)
[2021-06-28] MEDS: CEFTRIAXONE 1 GM in DEXTROSE 5%-WATER - 50 ML IVPB SCH (10:55)
[2021-06-28] MEDS: SPIRONOLACTONE 25 MG TABLET PO SCH (10:56)
[2021-06-28] MEDS: FUROSEMIDE 20 MG TABLET (FP) PO SCH (10:56)
[2021-06-28] MEDS: LACTULOSE 20 GM/30 ML UDC (FOR ORAL USE ONLY) GT SCH (10:56)
[2021-06-28] MEDS: PANTOPRAZOLE 40 MG TABLET PO SCH (10:56)
[2021-06-28] MEDS: THIAMINE HCL 100 MG TABLET (FP) PO SCH (10:56)
[2021-06-28] MEDS: MULTIVIT-MINERALS ORAL LIQUID PO SCH ×2 (10:57→11:40)
[2021-06-28] MEDS: RIFAXIMIN 550 MG TABLET PO SCH ×2 (10:57→21:47)
[2021-06-28] MEDS: ASCORBIC ACID 500 MG TABLET (FP) PO SCH ×2 (10:58→21:47)
[2021-06-28] MEDS ORDERED: SPIRONOLACTONE 25 MG TABLET PO ONE (11:06)
[2021-06-28] MEDS: MIRTAZAPINE 15 MG TABLET (FP) PO SCH (21:47)
[2021-06-28] MEDS ORDERED: morphine SULFATE 4 MG/ML VIAL IVPUSH ONE (22:22)
[2021-06-29] MEDS: INSULIN SLIDING SCALE (NOVOLOG) 1 VIAL SQ SCH ×4 (06:13→20:59)
[2021-06-29 10:13] LABS: HEMATOCRIT 28.9 % (35.4-49); HEMOGLOBIN 9.6 GM/dL (11.7-16.9); MCH 31.4 pg (25.7-33.7); MCHC 33.1 g/dl (32.0-35.9); MEAN CELL VOLUME 94.7 fl (80-96); MEAN PLT VOLUME 7.6 fl (7.5-11.1); PLATELET COUNT 51 10^3/uL (134-434); RBC 3.05 M/mm3 (4.00-5.60); RDW 16.6 % (11.9-15.9); WHITE BLOOD COUNT 7.8 K/mm3 (4.0-10.0)
[2021-06-29 10:19] LABS: INR 2.18 (0.83-1.09); PROTHROMBIN TIME (PATIENT) 24.6 SEC (9.7-13.0)
[2021-06-29 10:44] LABS: CALCIUM 7.9 mg/dL (8.5-10.1)
[2021-06-29 10:45] LABS: ALBUMIN 1.6 g/dl (3.4-5.0); BLOOD UREA NITROGEN 22.9 mg/dL (7-18); MAGNESIUM 1.8 mg/dL (1.8-2.4)
[2021-06-29 10:49] LABS: BILIRUBIN,TOTAL 3.2 mg/dL (0.2-1); TOT PROT 7.5 g/dl (6.4-8.2)
[2021-06-29 10:50] LABS: CREATININE 0.9 mg/dL (0.55-1.3)
[2021-06-29] MEDS: AMINO ACIDS/PROTEIN HYDROLYS 30 ML LIQUID.PKT PO SCH ×2 (11:25→16:42)
[2021-06-29] MEDS: MULTIVIT-MINERALS ORAL LIQUID PO SCH (11:25)
[2021-06-29] MEDS: LACTULOSE 20 GM/30 ML UDC (FOR ORAL USE ONLY) GT SCH (11:25)
[2021-06-29] MEDS: THIAMINE HCL 100 MG TABLET (FP) PO SCH (11:27)
[2021-06-29] MEDS: PANTOPRAZOLE 40 MG TABLET PO SCH (11:27)
[2021-06-29] MEDS: FUROSEMIDE 20 MG TABLET (FP) PO SCH (11:27)
[2021-06-29] MEDS: RIFAXIMIN 550 MG TABLET PO SCH ×2 (11:28→20:59)
[2021-06-29] MEDS: ASCORBIC ACID 500 MG TABLET (FP) PO SCH ×2 (11:28→20:59)
[2021-06-29] MEDS: SPIRONOLACTONE 25 MG TABLET PO SCH ×2 (15:21→15:58)
[2021-06-29] MEDS ORDERED: PHYTONADIONE 10 MG/1 ML AMP IVPB ONE (15:42)
[2021-06-29 16:07] LABS: BODY FLUID ALBUMIN 0.3 g/dL (Not Estab.)
[2021-06-29] MEDS: MIRTAZAPINE 15 MG TABLET (FP) PO SCH (20:59)
[2021-06-29] MEDS: ALBUTEROL SO4 HFA INHALER IH PRN (23:13)
[2021-06-30] MEDS: INSULIN SLIDING SCALE (NOVOLOG) 1 VIAL SQ SCH ×4 (06:05→21:58)
[2021-06-30] MEDS: AMINO ACIDS/PROTEIN HYDROLYS 30 ML LIQUID.PKT PO SCH ×2 (11:06→17:53)
[2021-06-30] MEDS: MULTIVIT-MINERALS ORAL LIQUID PO SCH (11:06)
[2021-06-30] MEDS: LACTULOSE 20 GM/30 ML UDC (FOR ORAL USE ONLY) GT SCH (11:06)
[2021-06-30] MEDS: FUROSEMIDE 20 MG TABLET (FP) PO SCH (11:08)
[2021-06-30] MEDS: PANTOPRAZOLE 40 MG TABLET PO SCH (11:08)
[2021-06-30] MEDS: RIFAXIMIN 550 MG TABLET PO SCH ×2 (11:08→21:58)
[2021-06-30] MEDS: ASCORBIC ACID 500 MG TABLET (FP) PO SCH ×2 (11:08→21:58)
[2021-06-30] MEDS: SPIRONOLACTONE 25 MG TABLET PO SCH (11:08)
[2021-06-30] MEDS: THIAMINE HCL 100 MG TABLET (FP) PO SCH (11:08)
[2021-06-30 12:06] LABS: PROTHROMBIN TIME (PATIENT) 23.6 SEC (9.7-13.0)
[2021-06-30 12:07] LABS: HEMATOCRIT 29.1 % (35.4-49); HEMOGLOBIN 9.9 GM/dL (11.7-16.9); MCH 32.6 pg (25.7-33.7); MEAN CELL VOLUME 95.8 fl (80-96); MEAN PLT VOLUME 9.1 fl (7.5-11.1); PLATELET COUNT 54 10^3/uL (134-434); RBC 3.04 M/mm3 (4.00-5.60); RDW 16.9 % (11.9-15.9); WHITE BLOOD COUNT 7.8 K/mm3 (4.0-10.0)
[2021-06-30 12:32] LABS: ALBUMIN 1.6 g/dl (3.4-5.0); BLOOD UREA NITROGEN 20.8 mg/dL (7-18); CALCIUM 7.5 mg/dL (8.5-10.1)
[2021-06-30 12:33] LABS: MAGNESIUM 1.7 mg/dL (1.8-2.4)
[2021-06-30 12:35] LABS: PHOSPHOROUS 3.5 mg/dL (2.5-4.9)
[2021-06-30 12:37] LABS: BILIRUBIN,TOTAL 4.5 mg/dL (0.2-1); TOT PROT 7.7 g/dl (6.4-8.2)
[2021-06-30 15:50] LABS: EPI CELLS 6 /uL (0-25.1); HYALINE CASTS 2 /uL (0-3.1); PH,URINE 5.5 (5.0-8.0); URINE APPEARANCE CLEAR; URINE BILIRUBIN 1+ (NEGATIVE); URINE COLOR DK YELLOW; URINE GLUCOSE (UA) NEGATIVE (NEGATIVE); URINE KETONE TRACE (NEGATIVE); URINE LEUK ESTERASE TRACE (NEGATIVE); URINE NITRITE POSITIVE (NEGATIVE); URINE PROTEIN TRACE (NEGATIVE); URINE RBC 19 /uL (0-23.9); URINE UROBILINOGEN 0.2 mg/dL (0.2-1.0); URINE WBC 35 /uL (0-25.8)
[2021-06-30] MEDS ORDERED: MAGNESIUM SULF 50% (8.12 MEQ/2 ML-1 GM VIAL) IVPB ONE (16:52)
[2021-06-30] MEDS: ALBUTEROL SO4 HFA INHALER IH PRN (17:30)
[2021-06-30] MEDS: MIRTAZAPINE 15 MG TABLET (FP) PO SCH (21:58)
[2021-07-01] MEDS: INSULIN SLIDING SCALE (NOVOLOG) 1 VIAL SQ SCH ×4 (06:09→21:49)
[2021-07-01 09:23] LABS: HEMATOCRIT 26.5 % (35.4-49); HEMOGLOBIN 9.1 GM/dL (11.7-16.9); MCH 32.4 pg (25.7-33.7); MCHC 34.3 g/dl (32.0-35.9); MEAN CELL VOLUME 94.7 fl (80-96); MEAN PLT VOLUME 8.5 fl (7.5-11.1); PLATELET COUNT 57 10^3/uL (134-434); RBC 2.79 M/mm3 (4.00-5.60); RDW 16.6 % (11.9-15.9); WHITE BLOOD COUNT 7.3 K/mm3 (4.0-10.0)
[2021-07-01 09:35] LABS: INR 2.39 (0.83-1.09)
[2021-07-01] MEDS ORDERED: CIPROFLOXACIN 400 MG/D5W 400 MG/200 ML IVPB IVPB SCH (10:00)
[2021-07-01 10:07] LABS: BLOOD UREA NITROGEN 20.3 mg/dL (7-18); CALCIUM 7.4 mg/dL (8.5-10.1)
[2021-07-01 10:09] LABS: ALBUMIN 1.5 g/dl (3.4-5.0); MAGNESIUM 1.6 mg/dL (1.8-2.4)
[2021-07-01 10:10] LABS: CREATININE 0.8 mg/dL (0.55-1.3); PHOSPHOROUS 2.9 mg/dL (2.5-4.9)
[2021-07-01 10:13] LABS: BILIRUBIN,TOTAL 4.5 mg/dL (0.2-1)
[2021-07-01] MEDS ORDERED: PT OWN MED DRAWER 7, Y5N ONE (11:06)
[2021-07-01] MEDS: FUROSEMIDE 20 MG TABLET (FP) PO SCH (11:23)
[2021-07-01] MEDS: ALBUTEROL SO4 HFA INHALER IH PRN (11:24)
[2021-07-01] MEDS: AMINO ACIDS/PROTEIN HYDROLYS 30 ML LIQUID.PKT PO SCH ×2 (11:49→18:09)
[2021-07-01] MEDS: SPIRONOLACTONE 25 MG TABLET PO SCH (11:49)
[2021-07-01] MEDS: MULTIVIT-MINERALS ORAL LIQUID PO SCH (11:50)
[2021-07-01] MEDS: RIFAXIMIN 550 MG TABLET PO SCH (11:50)
[2021-07-01] MEDS: LACTULOSE 20 GM/30 ML UDC (FOR ORAL USE ONLY) GT SCH (11:50)
[2021-07-01] MEDS: PANTOPRAZOLE 40 MG TABLET PO SCH (11:50)
[2021-07-01] MEDS: THIAMINE HCL 100 MG TABLET (FP) PO SCH (11:50)
[2021-07-01] MEDS: ASCORBIC ACID 500 MG TABLET (FP) PO SCH ×2 (11:50→21:49)
[2021-07-01] MEDS ORDERED: PIPERACILLIN/TAZOBACTAM 3.375 GM VIAL IVPB ONE ×2 (15:24→20:20)
[2021-07-01] MEDS ORDERED: DEXTROSE 5%-WATER - 50 ML IVPB ONE ×2 (15:24→20:20)
[2021-07-01] MEDS: PIPERACILLIN/TAZOB 3.375 GM 3.375 GM in DEXTROSE 5%-WATER - 50 ML IVPB SCH ×2 (15:42→20:45)
[2021-07-01] MEDS: MIRTAZAPINE 15 MG TABLET (FP) PO SCH (21:49)
[2021-07-02] MEDS ORDERED: PT OWN MED DRAWER 7, Y5N ONE ×2 (02:20→09:51)
[2021-07-02] MEDS ORDERED: PIPERACILLIN/TAZOBACTAM 3.375 GM VIAL IVPB ONE ×3 (02:20→17:17)
[2021-07-02] MEDS ORDERED: DEXTROSE 5%-WATER - 50 ML IVPB ONE ×3 (02:20→17:17)
[2021-07-02] MEDS: PIPERACILLIN/TAZOB 3.375 GM 3.375 GM in DEXTROSE 5%-WATER - 50 ML IVPB SCH ×3 (02:49→17:21)
[2021-07-02] MEDS: INSULIN SLIDING SCALE (NOVOLOG) 1 VIAL SQ SCH ×4 (06:20→22:10)
[2021-07-02] MEDS: AMINO ACIDS/PROTEIN HYDROLYS 30 ML LIQUID.PKT PO SCH ×2 (08:24→17:20)
[2021-07-02 09:42] LABS: HEMATOCRIT 25.1 % (35.4-49); HEMOGLOBIN 8.6 GM/dL (11.7-16.9); MCH 32.7 pg (25.7-33.7); MCHC 34.2 g/dl (32.0-35.9); MEAN CELL VOLUME 95.7 fl (80-96); MEAN PLT VOLUME 8.5 fl (7.5-11.1); PLATELET COUNT 58 10^3/uL (134-434); RBC 2.62 M/mm3 (4.00-5.60); RDW 17.1 % (11.9-15.9); WHITE BLOOD COUNT 5.9 K/mm3 (4.0-10.0)
[2021-07-02 09:48] LABS: INR 2.15 (0.83-1.09); PROTHROMBIN TIME (PATIENT) 25.4 SEC (9.7-13.0)
[2021-07-02] MEDS: THIAMINE HCL 100 MG TABLET (FP) PO SCH (09:59)
[2021-07-02] MEDS: LACTULOSE 20 GM/30 ML UDC (FOR ORAL USE ONLY) GT SCH (09:59)
[2021-07-02] MEDS: PANTOPRAZOLE 40 MG TABLET PO SCH (09:59)
[2021-07-02] MEDS: SPIRONOLACTONE 25 MG TABLET PO SCH (09:59)
[2021-07-02] MEDS: FUROSEMIDE 40 MG TABLET (FP) PO SCH (09:59)
[2021-07-02] MEDS: ASCORBIC ACID 500 MG TABLET (FP) PO SCH ×2 (09:59→22:10)
[2021-07-02] MEDS: MULTIVIT-MINERALS ORAL LIQUID PO SCH (09:59)
[2021-07-02 10:12] LABS: CALCIUM 7.3 mg/dL (8.5-10.1)
[2021-07-02 10:14] LABS: ALBUMIN 1.4 g/dl (3.4-5.0)
[2021-07-02 10:16] LABS: CREATININE 0.9 mg/dL (0.55-1.3)
[2021-07-02 10:17] LABS: BILIRUBIN,TOTAL 4.4 mg/dL (0.2-1); TOT PROT 6.8 g/dl (6.4-8.2)
[2021-07-02] MEDS: ALBUTEROL SO4 HFA INHALER IH PRN (22:10)
[2021-07-02] MEDS: MIRTAZAPINE 15 MG TABLET (FP) PO SCH (22:10)
[2021-07-03] MEDS ORDERED: DEXTROSE 5%-WATER - 50 ML IVPB ONE ×3 (01:08→17:07)
[2021-07-03] MEDS ORDERED: PIPERACILLIN/TAZOBACTAM 3.375 GM VIAL IVPB ONE ×3 (01:08→17:07)
[2021-07-03] MEDS: PIPERACILLIN/TAZOB 3.375 GM 3.375 GM in DEXTROSE 5%-WATER - 50 ML IVPB SCH ×3 (01:17→17:37)
[2021-07-03] MEDS: INSULIN SLIDING SCALE (NOVOLOG) 1 VIAL SQ SCH ×4 (06:32→21:16)
[2021-07-03] MEDS: AMINO ACIDS/PROTEIN HYDROLYS 30 ML LIQUID.PKT PO SCH ×2 (07:44→16:52)
[2021-07-03 08:33] LABS: HEMOGLOBIN 8.6 GM/dL (11.7-16.9); MCH 32.9 pg (25.7-33.7); MCHC 34.4 g/dl (32.0-35.9); MEAN CELL VOLUME 95.7 fl (80-96); MEAN PLT VOLUME 8.4 fl (7.5-11.1); PLATELET COUNT 57 10^3/uL (134-434); RBC 2.61 M/mm3 (4.00-5.60); RDW 17.9 % (11.9-15.9)
[2021-07-03 08:55] LABS: ALBUMIN 1.4 g/dl (3.4-5.0); BLOOD UREA NITROGEN 20.4 mg/dL (7-18); CALCIUM 7.5 mg/dL (8.5-10.1)
[2021-07-03 08:58] LABS: CREATININE 0.9 mg/dL (0.55-1.3)
[2021-07-03 09:00] LABS: BILIRUBIN,TOTAL 4.5 mg/dL (0.2-1); TOT PROT 6.7 g/dl (6.4-8.2)
[2021-07-03] MEDS: PANTOPRAZOLE 40 MG TABLET PO SCH (09:29)
[2021-07-03] MEDS: FUROSEMIDE 40 MG TABLET (FP) PO SCH (09:29)
[2021-07-03] MEDS: MULTIVIT-MINERALS ORAL LIQUID PO SCH (09:29)
[2021-07-03] MEDS: LACTULOSE 20 GM/30 ML UDC (FOR ORAL USE ONLY) GT SCH (09:29)
[2021-07-03] MEDS: SPIRONOLACTONE 25 MG TABLET PO SCH (09:29)
[2021-07-03] MEDS: THIAMINE HCL 100 MG TABLET (FP) PO SCH (09:30)
[2021-07-03] MEDS: ASCORBIC ACID 500 MG TABLET (FP) PO SCH ×2 (09:30→21:14)
[2021-07-03 10:30] LABS: INR 2.17 (0.83-1.09); PROTHROMBIN TIME (PATIENT) 24.5 SEC (9.7-13.0)
[2021-07-03] MEDS: MIRTAZAPINE 15 MG TABLET (FP) PO SCH (21:14)
[2021-07-04] MEDS ORDERED: PIPERACILLIN/TAZOBACTAM 3.375 GM VIAL IVPB ONE ×3 (01:14→17:17)
[2021-07-04] MEDS ORDERED: DEXTROSE 5%-WATER - 50 ML IVPB ONE ×3 (01:15→17:17)
[2021-07-04] MEDS: PIPERACILLIN/TAZOB 3.375 GM 3.375 GM in DEXTROSE 5%-WATER - 50 ML IVPB SCH ×3 (02:35→17:23)
[2021-07-04] MEDS: INSULIN SLIDING SCALE (NOVOLOG) 1 VIAL SQ SCH ×3 (06:20→17:20)
[2021-07-04 09:24] LABS: HEMATOCRIT 24.8 % (35.4-49); HEMOGLOBIN 8.4 GM/dL (11.7-16.9); MCH 32.7 pg (25.7-33.7); MCHC 33.9 g/dl (32.0-35.9); MEAN CELL VOLUME 96.4 fl (80-96); MEAN PLT VOLUME 8.4 fl (7.5-11.1); PLATELET COUNT 62 10^3/uL (134-434); RBC 2.58 M/mm3 (4.00-5.60); RDW 18.1 % (11.9-15.9); WHITE BLOOD COUNT 5.3 K/mm3 (4.0-10.0)
[2021-07-04] MEDS: ASCORBIC ACID 500 MG TABLET (FP) PO SCH ×2 (09:59→22:04)
[2021-07-04] MEDS: THIAMINE HCL 100 MG TABLET (FP) PO SCH (09:59)
[2021-07-04] MEDS: LACTULOSE 20 GM/30 ML UDC (FOR ORAL USE ONLY) GT SCH (10:00)
[2021-07-04] MEDS: PANTOPRAZOLE 40 MG TABLET PO SCH (10:00)
[2021-07-04] MEDS: FUROSEMIDE 40 MG TABLET (FP) PO SCH (10:00)
[2021-07-04] MEDS: AMINO ACIDS/PROTEIN HYDROLYS 30 ML LIQUID.PKT PO SCH ×2 (10:00→17:16)
[2021-07-04] MEDS: MULTIVIT-MINERALS ORAL LIQUID PO SCH (10:00)
[2021-07-04] MEDS: SPIRONOLACTONE 25 MG TABLET PO SCH (10:00)
[2021-07-04 10:05] LABS: CALCIUM 7.5 mg/dL (8.5-10.1)
[2021-07-04 10:06] LABS: ALBUMIN 1.4 g/dl (3.4-5.0); BLOOD UREA NITROGEN 19.4 mg/dL (7-18)
[2021-07-04 10:09] LABS: CREATININE 0.9 mg/dL (0.55-1.3)
[2021-07-04 10:11] LABS: BILIRUBIN,TOTAL 4.9 mg/dL (0.2-1); TOT PROT 6.8 g/dl (6.4-8.2)
[2021-07-04] MEDS: MIRTAZAPINE 15 MG TABLET (FP) PO SCH (22:04)
[2021-07-05] MEDS ORDERED: DEXTROSE 5%-WATER - 50 ML IVPB ONE ×3 (01:12→16:57)
[2021-07-05] MEDS ORDERED: PIPERACILLIN/TAZOBACTAM 3.375 GM VIAL IVPB ONE ×3 (01:12→16:57)
[2021-07-05] MEDS: PIPERACILLIN/TAZOB 3.375 GM 3.375 GM in DEXTROSE 5%-WATER - 50 ML IVPB SCH ×3 (01:56→17:00)
[2021-07-05] MEDS: AMINO ACIDS/PROTEIN HYDROLYS 30 ML LIQUID.PKT PO SCH ×2 (08:08→16:56)
[2021-07-05] MEDS: SPIRONOLACTONE 25 MG TABLET PO SCH (10:02)
[2021-07-05] MEDS: MULTIVIT-MINERALS ORAL LIQUID PO SCH (10:03)
[2021-07-05] MEDS: FUROSEMIDE 40 MG TABLET (FP) PO SCH (10:03)
[2021-07-05] MEDS: ASCORBIC ACID 500 MG TABLET (FP) PO SCH ×2 (10:03→22:54)
[2021-07-05] MEDS: PANTOPRAZOLE 40 MG TABLET PO SCH (10:03)
[2021-07-05] MEDS: LACTULOSE 20 GM/30 ML UDC (FOR ORAL USE ONLY) GT SCH (10:03)
[2021-07-05] MEDS: THIAMINE HCL 100 MG TABLET (FP) PO SCH (10:03)
[2021-07-05 11:14] LABS: HEMATOCRIT 25.5 % (35.4-49); HEMOGLOBIN 8.6 GM/dL (11.7-16.9); MCH 32.3 pg (25.7-33.7); MCHC 33.7 g/dl (32.0-35.9); MEAN CELL VOLUME 95.7 fl (80-96); MEAN PLT VOLUME 8.1 fl (7.5-11.1); PLATELET COUNT 66 10^3/uL (134-434); RBC 2.66 M/mm3 (4.00-5.60); RDW 18.4 % (11.9-15.9); WHITE BLOOD COUNT 5.2 K/mm3 (4.0-10.0)
[2021-07-05 11:37] LABS: ALBUMIN 1.4 g/dl (3.4-5.0); CALCIUM 7.3 mg/dL (8.5-10.1)
[2021-07-05 11:38] LABS: BLOOD UREA NITROGEN 18.4 mg/dL (7-18); MAGNESIUM 1.9 mg/dL (1.8-2.4)
[2021-07-05 11:40] LABS: CREATININE 0.9 mg/dL (0.55-1.3)
[2021-07-05 11:41] LABS: PHOSPHOROUS 3.1 mg/dL (2.5-4.9)
[2021-07-05 11:45] LABS: BILIRUBIN,TOTAL 4.6 mg/dL (0.2-1)
[2021-07-05] MEDS: MIRTAZAPINE 15 MG TABLET (FP) PO SCH (22:54)
[2021-07-06] MEDS ORDERED: PIPERACILLIN/TAZOBACTAM 3.375 GM VIAL IVPB ONE ×3 (00:59→15:56)
[2021-07-06] MEDS ORDERED: DEXTROSE 5%-WATER - 50 ML IVPB ONE ×3 (00:59→15:57)
[2021-07-06] MEDS: PIPERACILLIN/TAZOB 3.375 GM 3.375 GM in DEXTROSE 5%-WATER - 50 ML IVPB SCH ×3 (01:15→17:07)
[2021-07-06] MEDS ORDERED: PT OWN MED DRAWER 7, Y5N ONE (09:49)
[2021-07-06] MEDS: SPIRONOLACTONE 25 MG TABLET PO SCH (10:09)
[2021-07-06] MEDS: LACTULOSE 20 GM/30 ML UDC (FOR ORAL USE ONLY) GT SCH (10:09)
[2021-07-06] MEDS: AMINO ACIDS/PROTEIN HYDROLYS 30 ML LIQUID.PKT PO SCH ×2 (10:09→17:06)
[2021-07-06] MEDS: MULTIVIT-MINERALS ORAL LIQUID PO SCH (10:09)
[2021-07-06] MEDS: ASCORBIC ACID 500 MG TABLET (FP) PO SCH ×2 (10:10→21:14)
[2021-07-06] MEDS: FUROSEMIDE 40 MG TABLET (FP) PO SCH (10:10)
[2021-07-06] MEDS: THIAMINE HCL 100 MG TABLET (FP) PO SCH (10:10)
[2021-07-06] MEDS: PANTOPRAZOLE 40 MG TABLET PO SCH (10:10)
[2021-07-06] MEDS: MIRTAZAPINE 15 MG TABLET (FP) PO SCH (21:14)
[2021-07-07] MEDS ORDERED: DEXTROSE 5%-WATER - 50 ML IVPB ONE ×3 (01:18→16:02)
[2021-07-07] MEDS ORDERED: PIPERACILLIN/TAZOBACTAM 3.375 GM VIAL IVPB ONE ×3 (01:18→16:02)
[2021-07-07] MEDS: PIPERACILLIN/TAZOB 3.375 GM 3.375 GM in DEXTROSE 5%-WATER - 50 ML IVPB SCH ×3 (01:35→17:13)
[2021-07-07] MEDS ORDERED: PT OWN MED DRAWER 7, Y5N ONE (07:56)
[2021-07-07] MEDS: ASCORBIC ACID 500 MG TABLET (FP) PO SCH ×2 (09:30→22:00)
[2021-07-07] MEDS: AMINO ACIDS/PROTEIN HYDROLYS 30 ML LIQUID.PKT PO SCH ×2 (09:30→17:13)
[2021-07-07] MEDS: FUROSEMIDE 40 MG TABLET (FP) PO SCH (09:30)
[2021-07-07] MEDS: MULTIVIT-MINERALS ORAL LIQUID PO SCH (09:30)
[2021-07-07] MEDS: LACTULOSE 20 GM/30 ML UDC (FOR ORAL USE ONLY) GT SCH (09:30)
[2021-07-07] MEDS: SPIRONOLACTONE 25 MG TABLET PO SCH (09:30)
[2021-07-07] MEDS: THIAMINE HCL 100 MG TABLET (FP) PO SCH (09:30)
[2021-07-07] MEDS: PANTOPRAZOLE 40 MG TABLET PO SCH (09:30)
[2021-07-07 10:16] LABS: HEMATOCRIT 26.3 % (35.4-49); HEMOGLOBIN 9.2 GM/dL (11.7-16.9); MCH 34.2 pg (25.7-33.7); MCHC 35.1 g/dl (32.0-35.9); MEAN CELL VOLUME 97.4 fl (80-96); MEAN PLT VOLUME 8.6 fl (7.5-11.1); PLATELET COUNT 71 10^3/uL (134-434); RDW 19.1 % (11.9-15.9); WHITE BLOOD COUNT 5.1 K/mm3 (4.0-10.0)
[2021-07-07] MEDS: MIRTAZAPINE 15 MG TABLET (FP) PO SCH (22:00)
[2021-07-08] MEDS: PANTOPRAZOLE 40 MG TABLET PO SCH (09:29)
[2021-07-08] MEDS: LACTULOSE 20 GM/30 ML UDC (FOR ORAL USE ONLY) GT SCH (09:30)
[2021-07-08] MEDS: MULTIVIT-MINERALS ORAL LIQUID PO SCH (09:30)
[2021-07-08] MEDS: THIAMINE HCL 100 MG TABLET (FP) PO SCH (09:30)
[2021-07-08] MEDS: ASCORBIC ACID 500 MG TABLET (FP) PO SCH (09:30)
[2021-07-08] MEDS: SPIRONOLACTONE 25 MG TABLET PO SCH (09:30)
[2021-07-08] MEDS: AMINO ACIDS/PROTEIN HYDROLYS 30 ML LIQUID.PKT PO SCH (09:30)
[2021-07-08] MEDS: FUROSEMIDE 40 MG TABLET (FP) PO SCH (09:31)
[2021-07-08 15:02] VITALS: BP 91/56; PULSE 88; TEMP 98
== END 2021-07-08 15:25 | DRG 207 ==
LOC: JER 20:05 → JERBED 06-16 00:04 → JICU 06-16 02:55 → J5S 06-24 20:17
PROVIDERS: ADMIT Internal Medicine Pulmonary Disease; ATTEND Internal Medicine
PROC: 5A1955Z Respiratory Ventilation, Greater than 96 Consecutive Hours (ICD-10-PCS; principal; 2021-06-16)
PROC: 0BH17EZ Insertion of Endotracheal Airway into Trachea, Via Natural or Artificial Opening (ICD-10-PCS; 2021-06-16)
PROC: 30233L1 Transfusion of Nonautologous Fresh Plasma into Peripheral Vein, Percutaneous Approach (ICD-10-PCS; 2021-06-16)
PROC: 30233K1 Transfusion of Nonautologous Frozen Plasma into Peripheral Vein, Percutaneous Approach (ICD-10-PCS; 2021-06-16)
PROC: 30233N1 Transfusion of Nonautologous Red Blood Cells into Peripheral Vein, Percutaneous Approach (ICD-10-PCS; 2021-06-16)
PROC: 30233R1 Transfusion of Nonautologous Platelets into Peripheral Vein, Percutaneous Approach (ICD-10-PCS; 2021-06-16)
PROC: 0DJ08ZZ Inspection of Upper Intestinal Tract, Via Natural or Artificial Opening Endoscopic (ICD-10-PCS; 2021-06-21)
PROC: 0W9G3ZX Drainage of Peritoneal Cavity, Percutaneous Approach, Diagnostic (ICD-10-PCS; 2021-06-27)
DX: J96.01 Acute respiratory failure with hypoxia (principal); J18.9 Pneumonia, unspecified organism; K72.00 Acute and subacute hepatic failure without coma; I85.01 Esophageal varices with bleeding; K92.2 Gastrointestinal hemorrhage, unspecified; K56.600 Partial intestinal obstruction, unspecified as to cause; F10.239 Alcohol dependence with withdrawal, unspecified; K76.6 Portal hypertension; D68.9 Coagulation defect, unspecified; N39.0 Urinary tract infection, site not specified; K22.10 Ulcer of esophagus without bleeding; K56.7 Ileus, unspecified; R56.9 Unspecified convulsions; K31.89 Other diseases of stomach and duodenum; K70.31 Alcoholic cirrhosis of liver with ascites; D69.6 Thrombocytopenia, unspecified; D64.9 Anemia, unspecified; E11.618 Type 2 diabetes mellitus with other diabetic arthropathy; K70.11 Alcoholic hepatitis with ascites; I95.9 Hypotension, unspecified; F17.210 Nicotine dependence, cigarettes, uncomplicated
CPT/HCPCS: 36415; 36430; 36600; 70450-TC; 71045-TC-FY; 72125-TC; 74174-TC; 74230-TC-FY; 76700-TC; 76705-TC; 76775-TC; 76942-TC; 80048; 80053; 80061; 80076; 80307; 81003; 82042; 82105; 82140; 82150; 82248; 82272; 82465; 82550; 82570; 82607; 82746; 82803; 82945; 82962; 83036; 83605; 83615; 83735; 83986; 84100; 84157; 84300; 84439; 84443; 84445; 84478; 84481; 84484; 85025; 85027; 85250; 85379; 85384; 85610; 85730; 86704; 86850; 86870; 86900; 86901; 86902; 86922; 87040; 87070; 87075; 87077; 87086; 87102; 87116; 87186; 87205; 87206; 87210; 87340; 87517; 88108; 88305-TC; 92611-GN; 93005; 93010; 94002; 97116-GP; 97162-GP; 99291; C9803; J3490; P9017; P9034; P9058; U0003; U0005